=== PATIENT | male | born 1935 | race Caucasian/White ===

== ENCOUNTER 2018-07-04 11:28 | Outpatient (CLI) | payer OTHER ==
[~2018-07-04 11:28] MED LIST: AMBIEN10 MG; LUPRON DEP; METFORMIN HCL500 MG; [UNRECOGNIZED DRUG - OTHER]
== END 2018-07-04 11:35 | disposition home or self-care (01) ==
LOC: RAD 501 11:28
DX: J45.998 Other asthma (principal)

== ENCOUNTER → 2018-11-14 | Outpatient (CLI) | payer OTHER | END | disposition home or self-care (01) | LOC: TOM 10:45 | DX: G91.2 (Idiopathic) normal pressure hydrocephalus (principal); F01.51 Vascular dementia, unspecified severity, with behavioral disturbance ==

== ENCOUNTER 2019-08-01 12:56 | Inpatient (IN) | payer OTHER ==
[~2019-08-01] VITALS: Ht 180.3 cm; Wt 86.0 kg
[2019-08-15] MEDS ORDERED: PRE PROTEIN1 EACH PO (14:03)
[2019-08-15] MEDS ORDERED: XARELTO15 MG PO (14:03)
[2019-08-15] MEDS ORDERED: LASIX20 MG PO (14:04)
== END 2019-08-15 17:23 | disposition home or self-care (01) | DRG 280 ==
LOC: ER 12:56 → ICU 16:50 → SURG 16:50 → SEC-K 16:50 → MEDJ 16:50 → SURG 17:27 → MEDJ 08-02 08:19 → ICU 08-02 20:00 → SURH 08-09 22:12
PROVIDERS: ADMIT Specialist; ATTEND Specialist
PROC: 3E0F7GC Introduction of Other Therapeutic Substance into Respiratory Tract, Via Natural or Artificial Opening (ICD-10-PCS; principal; 2019-08-01)
PROC: 5A09557 Assistance with Respiratory Ventilation, Greater than 96 Consecutive Hours, Continuous Positive Airway Pressure (ICD-10-PCS; 2019-08-01)
PROC: B24BZZZ Ultrasonography of Heart with Aorta (ICD-10-PCS; 2019-08-01)
PROC: 4A12X4Z Monitoring of Cardiac Electrical Activity, External Approach (ICD-10-PCS; 2019-08-01)
PROC: 4A033R1 Measurement of Arterial Saturation, Peripheral, Percutaneous Approach (ICD-10-PCS; 2019-08-01)
PROC: B54DZZZ Ultrasonography of Bilateral Lower Extremity Veins (ICD-10-PCS; 2019-08-02)
PROC: 8E0ZXY6 Isolation (ICD-10-PCS; 2019-08-02)
DX: I11.0 Hypertensive heart disease with heart failure (principal); J18.9 Pneumonia, unspecified organism; I21.A1 Myocardial infarction type 2; I82.432 Acute embolism and thrombosis of left popliteal vein; C34.91 Malignant neoplasm of unspecified part of right bronchus or lung; G30.9 Alzheimer's disease, unspecified; F02.80 Dementia in other diseases classified elsewhere, unspecified severity, without behavioral disturbance, psychotic disturbance, mood disturbance, and anxiety; E11.9 Type 2 diabetes mellitus without complications; R09.02 Hypoxemia; I50.9 Heart failure, unspecified; E78.5 Hyperlipidemia, unspecified; I49.3 Ventricular premature depolarization; I27.29 Other secondary pulmonary hypertension; C61 Malignant neoplasm of prostate; J44.9 Chronic obstructive pulmonary disease, unspecified; Z87.891 Personal history of nicotine dependence